=== PATIENT | female | born 1990 | race Caucasian/White ===

== ENCOUNTER 2025-01-15 08:29 | Outpatient (AMB) | payer OTHER, SELFPAY ==
--- NOTE | 2025-01-15 08:32 | MHC.OFFVIS ---
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 She was doing okay. Migraines were better with verapamil, less often and less severe, but still happening about 10-12x/month. No medication side effects. She usually gets a few days of headaches and then can go few days without any. Sumatriptan as needed does not help much. Excedrin Migraine works better. No specific triggers identified. Sleep was okay. Review of Systems Const Denies chills, Denies daytime sleepiness, Denies difficulty sleeping, Denies fatigue, Denies fever(s), Denies frequent falls, Reports headache(s), Denies increased appetite, Denies poor appetite, Denies snoring, Denies weakness, Denies weight gain and Denies weight loss Eyes Denies loss of vision ENT Denies vertigo, Denies dizziness and Reports headache(s) Card Denies chest pain at rest, Denies chest pain with activity, Denies syncope, Denies leg edema and Denies palpitations Resp Denies snoring GI Denies constipation, Denies heartburn, Denies diarrhea and Denies nausea Denies urinary frequency, Denies urinary incontinence and Denies urinary urgency Musc Denies abnormal gait, Denies numbness and Denies tingling Skin/Breast Denies dry skin and Denies rash Neuro Denies abnormal gait, Denies vertigo, Denies dizziness, Denies syncope, Denies frequent falls, Reports headache(s), Denies lack of coordination, Denies loss of vision, Denies memory loss, Denies numbness, Denies restless legs, Denies seizure-like activity, Denies tingling, Denies paresthesias, Denies tremor(s) and Denies weakness Psych Denies anxiety, Denies depression, Denies auditory hallucinations, Denies memory loss, Denies visual hallucinations and Denies suicidal ideation Endo Denies fatigue and Denies palpitations Physical Exam Const Other: General Appearance:? normal, in no acute distress. Skin:? no rashes, no significant birthmarks. Heart:? S1, S2 normal, no murmurs. Lungs:? clear anteriorly and posteriorly. Extremities:? no edema. Psych:? alert, oriented, cognitive function intact, cooperative with exam. Neuro Other: Mental Status:?Normal attention, orientation, memory and affect.? Cranial Nerves:?Pupils are equal, round and reactive to light. External occular muscles are intact. Visual patel are full. Face is symmetrical. Facial sensations are normal. Tongue is midline. Palate elevates symmetrically. Shoulder shrugging is normal. Hearing to bedside conversation is normal. Sensory Exam:?....? Coordination:?No ataxia,?no titubation.? Gait Exam: Within normal limits. Extrapyramidal System:?No tremor, rigidity with normal facial expressions.? Pronator Drift:?Not present.? Involuntary Movements:?No tremors seen.? Speech:?Normal.? Results Reviewed Results Reviewed: MRI brain at [facility] in September 2019: Cheo Staley I, 4mm (per Dr. Saxena's office note: I am not sure about it, it looks fine to me ) MRI brain WO at [facility] in 2022: WNL Assessment & Plan Assessment & Plan (1) Migraine: Code(s): G43.909 - Migraine, unspecified, not intractable, without status migrainosus Category: Medical Qualifiers: Migraine type: unspecified Status migrainosus presence: without status migrainosus Intractability: not intractable Qualified Code(s): G43.909 - Migraine, unspecified, not intractable, without status migrainosus Plan: Increase verapamil 40mg 1 tablet twice a day. Sumatriptan as needed did not help and medication was stopped. Start rizatriptan 10mg 1 tablet as needed for migraines, use/side effects reviewed. Plan Meds tried: Topiramate, amitryptiline, Propranalol, sumatriptan Medications: New verapamil 40 mg PO BID 180 tabs 1RF 90 days rizatriptan take 1 tab at onset of headache; if no relief may repeat 1 tab after at least 4 hrs; max = 2 tabs/24 hr PO 10 tabs 5RF 30 days Discontinued verapamil Discontinued Reason: Doctor's Order 40 mg PO DAILY 90 days 90 tabs 1RF Coding Level of Care Code Est Pt Level 4 (46712) Diagnoses Migraine without status migrainosus, not intractable, unspecified migraine type G43.909 Migraine type: unspecified Status migrainosus presence: without status migrainosus Intractability: not intractable
--- OUTSIDE RECORDS SUMMARY | 2025-01-15 09:01 | XMS_ITS | Clinical Summary ---
Author Organization [facility] [address] [place] [address] [place] [phone] Phone Care Team Providers Care Supervisor Car Installations Name Role Phone Page Batista MD Primary Care Provider [phone] Allergies Active Allergy Reactions Criticality Noted Date Comments Cefaclor Hives 01/11/1996 Sulfamethoxazole-Trimethop rim 04/14/1992 Other Reaction(s): Rash/Dermatitis Medications norethindrone-e thin. estradiol (NORTREL , 28, ORAL) Take by mouth daily. Active Lactobacillus acidophilus (PROBIOTIC ORAL) Take by mouth. Active biotin 1 mg tablet Take by mouth daily. Active cetirizine (ZyrTEC) 10 mg tablet Take 1 Tablet by mouth daily. Active fluticasone propionate (FLONASE) 50 mcg/actuation nasal spray SHAKE LIQUID AND USE 2 SPRAYS IN EACH NOSTRIL DAILY NEEDED FOR RHINITIS OR ALLERGIES 10/04/19 24 Active clobetasoL (TEMOVATE) 0.05 % ointment Apply topically 2 (two) times a day. 09/26/19 24 Active amitriptyline (ELAVIL) 25 mg tablet Take 1 tablet (25 mg total) by mouth at bedtime. at bedtime. 90 tablet 1 02/29/20 24 Active FeroSuL 325 mg (65 mg iron) tablet TAKE 1 TABLET BY MOUTH DAILY 90 tablet 01/03/20 25 Active ferrous sulfate 325 mg (65 mg elemental iron) tablet Take 1 tablet (325 mg total) by mouth 1 (one) time each day. 90 tablet 1 02/29/20 24 025 Discontinued Active Problems Problem Noted Date Diagnosed Date Anemia 08/04/2023 Iron deficiency 08/04/2023 Chiari I malformation ([facility] V24, [facility] V28) 04/17/2020 Migraine headache 04/17/2020 Nephrolithiasis 06/21/2018 Immunizations Immunization Administration Dates Next Due DTP 11/06/1993, 4,04/23/1992,01/27,1991 [id number] (Pentacel) 2mo to less than 5yo 01/31/1993,04/23/1992,01/28/1992,11/25 HPV, Quadrivalent 07/31/2007,04/18/2007,01/17/20 07 Hepatitis B Pediatric (Enger ix B; Recombivax HB) to less than 20 yo 02/03/1995,07/15/1992,06/02/1992 Influenza Quadravalent, MDCK , 0.5ml, preservative free (Flucelvax) 6mo and older 02/10/2023,01/12/2017 Influenza Quadravalent, MDCK , 0.5ml, with preservative (Flucelvax) 6mo and older 02/07/2020 Influenza trivalent, 0.5mL, preservative free (Fluarix; FluLaval; Fluzone) ages 6mo and older (Afluria) 3 years and older 02/14/2021,01/16/2016,01/01/2015 Influenza, Unspecified 02/10/2022,02/14/2021 MMR, measles mumps and rubel la Live (Priorix; M-M-R II) 12mo and older 11/06/1996,03/03/1993 Meningococcal MCV4P 06/19/2008 OPV 11/06/1996, 4,01/28/1992,11/25 PPD Test 12/04/2009 Tdap Tetanus diptheria acell ular pertussis (Boostrix; Adacel) 7yo and older 02/20/2021,06/15/2006,11/08/2001 Varicella live (Varivax) 12m o and older 12/01/2009,01/22/1998 Surgical History Surgery Date Site/Laterality Comments OTHER SURGICAL HISTORY PROCEDURE: 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; 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4 TONSILLECTOMY PROCEDURE: HISTORICAL TONSILLECTOMY Medical History Medical History Date Comments Allergic rhinitis 06/21/2018 DX:Allergic rh initis Exercise-induced asthma 06/21/2018 DX:Exerc ise-induced asthma History of abnormal cervical Pap smear 05/23/2018 DX:History of abnormal cervical Pap smear; COMMENT: 2 normal paps since History of mononucleosis 06/21/2018 DX:Hist ory of mononucleosis; COMMENT: 2010 History of UTI 05/24/2018 DX:History of [place] I Renal stones 06/21/2018 DX:Renal stones Family History Medical History Relation Name Comments Asthma Brother No Known Problems Father Lung cancer Maternal Grandfather Ovarian cancer Maternal Grandmother age 8 0 Alzheimer's disease Paternal Grandfather Lung cancer Paternal Grandfather Relation Name Status Comments Brother Father Alive Maternal Grandfather Maternal Grandmother Mother Alive Paternal Grandfather Social History Tobacco Use Types Packs/Day Years Used Date Smoking Tobacco: Never Smokeless Tobacco: Never Tobacco Cessation:Counseling Given: Not Answered Alcohol Use Standard Drinks/Week Comments Yes 2 (1 standard drink = 0.6 oz pur e alcohol) Comments No Sex and Gender Information Value Date Recorded Sex Assigned at Not on file Legal Sex Female 9:42 PM EST Gender Identity Not on file Sexual Orientation Not on file Obstetrics History Last Filed Vital Signs Vital Sign Reading Time Taken Comments Blood Pressure 94/70 02/29/2024 3:30 PM EST Pulse 80 02/29/2024 3:30 PM EST Temperature 36.6 C (97.9 F) 02/29/2024 3:30 PM EST Respiratory Rate 16 02/29/2024 3:30 PM EST Oxygen Saturation - - Inhaled Oxygen Concentration - - Weight 66.2 kg (146 lb) 02/29/2024 3:30 PM EST Height 167.6 cm (5' 6 ) 02/29/2024 3:30 PM EST Body Mass Index 23.57 02/29/2024 3:30 PM EST Plan of Treatment Upcoming Encounters Date Type Department Care Team (Late st Contact Info) Description 04/10/2025 4:00 PM EST Office Visit Adult Medicine [facility] [address] [place] [phone] Cody Johansen PA [address] [place] [address] Health Maintenance Due Date Last Done Comments HIV Screening 03/20/2022 Hepatitis C Screening 03/20/2022 Social Influencers of Health Screening 03/20/2022 Depression Screening 04/11/2024 COVID-19 Vaccine ( season) 2024 01/06/2021, 04/30/2020, 04/09/2020 Influenza Vaccine (#1) 2024 , 02/10/2022, 02/14/2021, Additional history exists Cervical Cancer Screening: Pap Smear 05/04/2025 05/04/2022 Cholesterol Screening (Lipid Panel) 08/03/2028 08/04/2023 DTaP,Tdap,and Td Vaccines (8 - Td or Tdap) 02/20/2031 02/20/2021, 06/15/2006, 11/08/2001, Additional history exists RSV Immunization Adult Patients (1 - 1-dose 75+ series) 09/24/2066 HIB Vaccines Completed 01/31/1993, 04/11, 01/28/1992, Additional history exists Hepatitis B Vaccines Completed 02/03/1995, 07/15/1992, 06/02/1992 IPV Vaccines Completed 11/06/1996, 05/13, 01/31/1993, Additional history exists MMR Vaccines Completed 11/06/1996, 03/03/1993 HPV Vaccines Completed 07/31/2007, 11/2007, 01/16/2007 Meningococcal ACWY Vaccine Completed 06/19/2008 Varicella Vaccines Completed 12/01/2009, 01/22/1998 Hepatitis A Vaccines Aged Out No long er eligible based on patient's age to complete this topic Meningococcal B Vaccine Aged Out No l onger eligible based on patient's age to complete this topic Pneumococcal Vaccine: Pediatrics (0 to 5 Years) and At-Risk Patients (6 to 49 Years) Aged Out No longer eligible based on patient's age to complete this topic RSV Immunization Patients Under 20 months Aged Out No longer eligible based on patient's age to complete this topic Procedures Procedure Name Priority Date/Time Associated Diagnosis Comments LIPID PANEL Routine 08/04/2023 HM PAP SMEAR Routine 05/04/2022 from Last 3 Months or Most Recently Relevant to Health Maintenance Results * Lipid panel (08/04/2023) LDL/HDL Ratio 2 0 - 4 Triglycerides 86 0 - 150 mg/dL Cholesterol 192 0 - 200 mg/dL HDL 86 >=40 mg/dL LDL Cholesterol 89 0 - 100 mg/dL Blood Venous blood specimen / Unknown Historical Provider LAB BLOOD ORDERABLES Nadine l Result * Pap Smear (05/04/2022) HM Pap smear No Interpretation , Abstracted Historical Provider HEALTH MAINTENANCE Final Result from Last 3 Months or Most Recently Relevant to Health Maintenance Insurance [facility] Care Teams Supervisor Car Installations Relationship Specialty Start Date End Date Page Batista MD [address] [place] [phone] PCP - General Internal Medicine 02/27/24
--- OUTSIDE RECORDS SUMMARY | 2025-01-15 09:01 | XMS_ITS ---
Author Name [facility] Organization Unknown Care Team Organization Name Specialty Phone Email Start Date End Da te [facility] Page Batista Primary Care 06/16/2022 024 [facility] Termed, PROVIDER Primary Care 02/16/202211/09
== END 2025-01-15 08:44 | disposition home or self-care (01) ==
LOC: HO.HSM 08:30
PROVIDERS: PCP Internal Medicine; Referring Provider Internal Medicine; Visit Provider Registered Nurse
DX: G43.909 Migraine, unspecified, not intractable, without status migrainosus (principal)
CPT/HCPCS: 99214